=== PATIENT | male | born 1960 | race Two or more races ===

== ENCOUNTER 2019-04-20 22:32 | Emergency (ER) | payer OTHER ==
[~2019-04-20] VITALS: Ht 162.6 cm; Wt 79.8 kg
--- NOTE | 2019-04-20 22:40 | NUR ---
PT [id number] FROM HOME S/P SYNCOPE EPISODE WHILE IN SHOWER. PT ALSO C/O RECTAL BLEEDING S/P COLONOSCOPY. PT AAOX4. RESPIRATIONS EVEN AND UNLABORED. SKIN INTACT. NO ACUTE DISTRESS NOTED AT THIS TIME. WILL CONTINUE TO MONITOR
--- NOTE | 2019-04-20 22:40 | NUR ---
MD AT BEDSIDE FOR EVALUATION
[2019-04-20] MEDS ORDERED: IV NS 0.9% 1,000 ML BAG IV ONE (23:00)
[2019-04-20 23:02] LABS: BASOPHILS # (AUTO) 0.1 /CMM (0.0-0.2); BASOPHILS % (AUTO) 0.7 % (0.0-2.0); EOSINOPHILS % (AUTO) 0.8 % (0.0-6.0); HEMATOCRIT 40 % (39-51); HEMOGLOBIN 13.9 g/dL (13.5-17.5); LYMPHOCYTES # (AUTO) 2.8 /CMM (0.8-4.8); LYMPHOCYTES % (AUTO) 30.3 % (20.0-44.0); MEAN CORPUSCULAR HGB CONC 35 g/dl (31.0-36.0); MEAN CORPUSCULAR VOLUME 85 fL (80-96); MONOCYTES # (AUTO) 0.4 /CMM (0.1-1.30); MONOCYTES % (AUTO) 4.9 % (2.0-12.0); NEUTROPHILS # (AUTO) 5.8 /CMM (1.8-8.9); NEUTROPHILS % (AUTO) 63.3 % (43.0-81.0); PLATELET COUNT (AUTO) 197 /CMM (150-450); RED BLOOD CELL COUNT(AUTO) 4.69 MIL/uL (4.5-6.0); WHITE BLOOD COUNT (AUTO) 9.2 K/uL (4.3-11.0)
--- NOTE | 2019-04-20 23:06 | NUR ---
BROUGHT BY RADIOLOGY FOR CT
[2019-04-20 23:10] LABS: CALCIUM, SERUM 7.8 mg/dL (8.5-10.1); POTASSIUM 3.2 mmol/L (3.5-5.1)
[2019-04-20 23:16] LABS: ALBUMIN 3.6 g/dL (3.4-5.0); BILIRUBIN,DIRECT 0.1 mg/dL (0.0-0.2); BILIRUBIN,TOTAL 0.5 mg/dL (0.2-1.0); TOTAL PROTEIN, SERUM 6.3 g/dL (6.4-8.2)
--- NOTE | 2019-04-20 23:51 | NUR ---
[facility]. WAITING FOR MD CALL BACK.
--- NOTE | 2019-04-20 23:55 | NUR ---
DR. GULALPA SPEAKING TO [facility] DR. STEINER
--- NOTE | 2019-04-21 00:58 | NUR ---
TRANSFER INFO. [facility]. # FOR REPORT. [phone] HESTER ACCEPTING. [facility] ETA [id number].
--- NOTE | 2019-04-21 01:06 | NUR ---
ATTEMPTED TO GIVE REPORT TO [facility]. ON HOLD FOR 10 MINUTES, WILL TRY AGAIN LATER.
[2019-04-21 01:15] VITALS: BP 122/63
--- NOTE | 2019-04-21 01:15 | NUR ---
GAVE REPORT TO [facility] FOR TRANSPORTATION
--- NOTE | 2019-04-21 01:34 | NUR ---
ATTEMPTED TO GIVE REPORT TO [facility], ON HOLD FOR 10 MINUTES. PT EN ROUTE.
== END 2019-04-21 01:23 | disposition short-term general hospital (02) ==
LOC: ER 22:34
DX: K92.2 Gastrointestinal hemorrhage, unspecified (principal); R55 Syncope and collapse
CPT/HCPCS: 36415 ×2; 70450; 71045; 74176; 80048; 80076; 83690; 84484; 85025; 85730; 86850; 93005; 96360; 99291; J7030